=== PATIENT | female | born 1980 | race African-American/Black ===

== ENCOUNTER 2019-06-24 21:34 | Emergency (ER) | payer MEDICAID ==
[~2019-06-24] VITALS: Ht 172.7 cm; Wt 172.0 kg
[2019-06-24 23:39] LABS: BASOPHILS % 0.6 % (0.0-2.0); EOSINOPHILS % 1.7 % (0.0-5.0); HEMATOCRIT. 38.4 % (36.0-48.0); HEMOGLOBIN. 12.6 g/dL (12.0-16.0); LYMPHOCYTES % 33.6 % (20.0-50.0); MEAN CORPUSCULAR HEMOGLOBIN 28.7 pg (28.0-32.0); MEAN CORPUSCULAR VOLUME 87.3 fL (81.0-99.0); MEAN PLATELET VOLUME 7.6 fl (7.4-10.4); MONOCYTES % 6.3 % (2.0-8.0); NEUTROPHILS % 57.8 % (40.0-76.0); PLATELET 323 x1000/uL (130-400); RED BLOOD CELL COUNT 4.41 mill/uL (4.2-5.4); RED CELL DISTRIBUTION WIDTH 13.2 % (11.6-14.6)
[2019-06-24 23:42] LABS: CHLORIDE 104 mEq/L (98-107)
[2019-06-25 01:23] VITALS: BP 162/90
== END 2019-06-25 01:24 | disposition home or self-care (01) ==
LOC: ER 21:34
DX: L02.423 Furuncle of right upper limb (principal); N93.9 Abnormal uterine and vaginal bleeding, unspecified; R53.1 Weakness; R61 Generalized hyperhidrosis; N83.202 Unspecified ovarian cyst, left side; F12.10 Cannabis abuse, uncomplicated
CPT/HCPCS: 36415; 76830; 76856; 86850; 86900; 99284